=== PATIENT | female | born 1955 | race Caucasian/White ===

== ENCOUNTER 2016-10-10 01:57 | Emergency (ER) | payer OTHER ==
[2016-10-10] MEDS ORDERED: ONDANSETRON 4 MG TAB.RAPDIS PO ONE (07:56)
[2016-10-10] MEDS ORDERED: OXYCODONE-ACETAMINOPHEN 5-325 MG TABLET PO ONE (07:56)
--- NOTE | 2016-10-10 07:57 | ER Document Report ---
ED GI/ - General Chief Complaint: Back Pain Stated Complaint: RIGHT FLANK PAIN Time seen by provider: 07:05 Mode of Arrival: Ambulatory Information source: Patient Notes: 61 yo post menopausal female woke up at 2 am with bree right flank pain that radiated to the right middle to upper abdomen. Couldn't get comfortable, paced around. No fever. Did have nausea the other day. No vomiting or diarrhea. No dysuria. No abd surgery hx. TRAVEL OUTSIDE OF THE [place] IN LAST 30 DAYS: No - Related Data Allergies/Adverse Reactions: aspirin Allergy (Verified 10/10/16 02:23) levothyroxine sodium [From Synthroid] Adverse Reaction (Verified 10/10/16 02:23) Past Medical History - General Information source: Patient - Social History Smoking Status: Never Smoker Chew tobacco use (# tins/day): No Frequency of alcohol use: None Drug Abuse: None Family History: Other - Hx Heart Disease, father Endocrine Medical History: Reports: Hx Hypothyroidism Renal/ Medical History: Denies: Hx Peritoneal Dialysis Surgical Hx: Negative Review of Systems - Review of Systems Constitutional: No symptoms reported EENT: No symptoms reported Cardiovascular: No symptoms reported Respiratory: No symptoms reported Gastrointestinal: See HPI Genitourinary: No symptoms reported Female Genitourinary: No symptoms reported Musculoskeletal: See HPI Skin: No symptoms reported Hematologic/Lymphatic: No symptoms reported Neurological/Psychological: No symptoms reported Physical Exam - Vital signs Vitals: Temp Pulse Resp BP Pulse Ox 97.6 F 66 16 135/76 H 97 10/10/16 02:14 10/10/16 02:14 10/10/16 02:14 10/10/16 02:14 10/10/16 02:14 Interpretation: Normal - General General appearance: Appears well, Alert In distress: None - HEENT Head: Normocephalic, Atraumatic Eyes: Normal Pupils: PERRL Tympanic membrane: Normal Mucous membranes: Normal Pharynx: Normal Neck: Supple. No: Lymphadenopathy, Thyromegally - Respiratory Respiratory status: No respiratory distress Chest status: Nontender Breath sounds: Normal Chest palpation: Normal - Cardiovascular Rhythm: Regular Heart sounds: Normal auscultation Murmur: No - Abdominal Inspection: Normal Distension: No distension Bowel sounds: Normal Tenderness: Nontender. No: Tender Organomegaly: No organomegaly - Back Back: Normal, Nontender. No: CVA tenderness - Extremities General upper extremity: Normal inspection, Nontender, Normal color, Normal ROM , Normal temperature General lower extremity: Normal inspection, Nontender, Normal color, Normal ROM , Normal temperature, Normal weight bearing. No: Kerry's sign - Neurological Neuro grossly intact: Yes Cognition: Normal Orientation: AAOx4 Bly Coma Scale Eye Opening: Spontaneous Bly Coma Scale Verbal: Oriented Bly Coma Scale Motor: Obeys Commands Brigette Coma Scale Total: 15 Speech: Normal Motor strength normal: LUE, RUE, LLE, RLE Sensory: Normal - Psychological Associated symptoms: Normal affect, Normal mood - Skin Skin Temperature: Warm Skin Moisture: Dry Skin Color: Normal Skin irregularity: negative: Rash Course - Re-evaluation Re-evalutation: 10/10/16 09:[address] klein for the CT scan per [facility] guidelines. 10/10/16 10:30 CT shows 1 gallstone, no GB wall thickening or ductal dilitation., no hydro. no stone pain reduced with the tylenol. discussed results/plan with pt. - Vital Signs Vital signs: Temp Pulse Resp BP Pulse Ox 98.5 F 59 L 18 126/67 H 97 10/10/16 10:46 10/10/16 10:46 10/10/16 10:46 10/10/16 10:46 10/10/16 10:46 - Laboratory Result Diagrams: 10/10/16 08:10 10/10/16 08:10 Laboratory results interpreted by me: 10/10/16 10/10/16 07:35 08:10 Seg Neutrophils % 80.1 H Absolute Neutrophils 8.4 H Urine Blood SMALL H Ur Leukocyte Esterase MODERATE H Discharge - Discharge Clinical Impression: Right flank pain Cholelithiasis Qualifiers: Cholelithiasis location: gallbladder Cholecystitis presence: without cholecystitis Biliary obstruction: with biliary obstruction Qualified Code(s): K80.21 - Calculus of gallbladder without cholecystitis with obstruction Condition: Good Disposition: HOME, SELF-CARE Instructions: Gallbladder Disease ([facility]), Flank Pain ([facility]), Acetaminophen, Urinary Tract Infection ([facility]), Nitrofurantoin ([facility]) Additional Instructions: see your doctor for follow up low fat diet return to er if worse urine culture is pending see general surgeon if you develop more Right upper quadrant pain, nausea Prescriptions: Nitrofurantoin/Nitrofuran Mac [Macrobid 100 mg Capsule] 100 mg PO BID #14 capsule Forms: Return to Work Referrals: BANG GROSS MD [ACTIVE STAFF] - Follow up as needed
[2016-10-10 08:09] LABS: APPEARANCE,URINE CLEAR; BILIRUBIN,URINE NEGATIVE (NEGATIVE); GLUCOSE, URINE NEGATIVE (NEGATIVE); KETONES,URINE NEGATIVE (NEGATIVE); LEUKOCYTE ESTERASE,URINE MODERATE (NEGATIVE); NITRITE,URINE NEGATIVE (NEGATIVE); PROTEIN,URINE NEGATIVE (NEGATIVE); UROBILINOGEN,URINE NEGATIVE mg/dL (<2.0)
[2016-10-10] MEDS ORDERED: ACETAMINOPHEN 325 MG TABLET PO ONE (08:21)
[2016-10-10 08:26] LABS: ABSOLUTE BASOPHILS # (AUTO) 0.1 10^3/uL (0.0-0.2); ABSOLUTE LYMPHOCYTES (AUTO) 1.5 10^3/uL (0.5-4.7); ABSOLUTE MONOCYTES (AUTO) 0.5 10^3/uL (0.1-1.4); ABSOLUTE NEUT (AUTO) 8.4 10^3/uL (1.7-8.2); BASOPHILS % (AUTO) 0.5 % (0-2); EOSINOPHILS % (AUTO) 0.1 % (0-6); HEMATOCRIT 44.4 % (36.0-47.0); HGB HCT DIFFERENCE 0.6; LYMPHOCYTES % (AUTO) 14.5 % (13-45); MEAN CORPUSCULAR HGB CONC 33.9 g/dL (32.0-36.0); MEAN CORPUSCULAR VOLUME 86 fl (80-97); MONOCYTES % (AUTO) 4.8 % (3-13); RED BLOOD COUNT 5.19 10^6/uL (3.72-5.28); SEGMENTED NEUTROPHILS % (AUTO) 80.1 % (42-78); WHITE BLOOD COUNT 10.5 10^3/uL (4.0-10.5)
[2016-10-10 08:46] LABS: ALANINE AMINOTRANSFERASE 36 U/L (9-52); ALBUMIN 4.1 g/dL (3.5-5.0); ALKALINE PHOSPHATASE 91 U/L (38-126); ANION GAP 11 (5-19); ASPARTATE AMINO TRANSFERASE 19 U/L (14-36); BLOOD UREA NITROGEN 15 mg/dL (7-20); CALCIUM 9.8 mg/dL (8.4-10.2); CARBON DIOXIDE 24 mmol/L (22-30); CHLORIDE 107 mmol/L (98-107); CREATININE RESULT 0.92 mg/dL (0.52-1.25); GLUCOSE 105 mg/dL (75-110); LIPASE 46.3 U/L (23-300); TOTAL PROTEIN 6.5 g/dL (6.3-8.2)
[2016-10-10] MEDS ORDERED: NITROFURANTOIN MONOHYD/M-CRYST 100 MG CAPSULE PO ONE (10:23)
[2016-10-10 10:48] VITALS: BP 126/67
== END 2016-10-10 10:46 | disposition home or self-care (01) ==
LOC: ER 01:57
DX: K80.21 Calculus of gallbladder without cholecystitis with obstruction (principal); R10.9 Unspecified abdominal pain; M54.9 Dorsalgia, unspecified; R11.0 Nausea
CPT/HCPCS: 99284; 36415; 87086; 83690; 85025; 80053; 81001; 76380; J8499

== ENCOUNTER 2018-11-26 21:16 | Emergency (ER) | payer OTHER ==
[2018-11-26 22:22] LABS: APPEARANCE,URINE CLEAR; BILIRUBIN,URINE NEGATIVE (NEGATIVE); COLOR,URINE YELLOW; GLUCOSE, URINE NEGATIVE (NEGATIVE); KETONES,URINE 80 mg/dL (NEGATIVE); LEUKOCYTE ESTERASE,URINE NEGATIVE (NEGATIVE); NITRITE,URINE NEGATIVE (NEGATIVE); PROTEIN,URINE NEGATIVE (NEGATIVE); URINE SPECIFIC GRAVITY 1.012
[2018-11-26] MEDS ORDERED: ONDANSETRON HCL INJ/PF 4 MG/2 ML SDV IV ONE (22:35)
[2018-11-26] MEDS ORDERED: NORMAL SALINE 1000 ML 1,000 ML IV ONE (22:35)
--- NOTE | 2018-11-26 22:40 | ER Document Report ---
ED General - General Chief Complaint: Diarrhea Stated Complaint: DIARRHEA,COUGH Time Seen by Provider: 11/26/18 22:26 Notes: Patient is a 63-year-old female that comes to the emergency department for chief complaint of abdominal cramping and diarrhea. She states she has had diarrhea for the past 12 days. She now has a few episodes a day, only twice today, she denies blood in the stool or fevers. Before she started having diarrhea she had about 3 days of cough, congestion, fever. She had sick relatives as well. She was able to eat earlier today. She did have stool testing with her primary care provider and she did not get told of any positive results. She denies history of C. difficile. She denies recent antibiotics, recent travel, obvious raw or concerning food source. TRAVEL OUTSIDE OF THE [place] IN LAST 30 DAYS: No - Related Data Allergies/Adverse Reactions: aspirin Allergy (Verified 10/10/16 02:23) levothyroxine sodium [From Synthroid] Adverse Reaction (Verified 10/10/16 02:23) Past Medical History - General Information source: Patient, Relative - Social History Smoking Status: Never Smoker Frequency of alcohol use: None Drug Abuse: None Lives with: Family Family History: Other - Hx Heart Disease, father Endocrine Medical History: Reports: Hx Hyperthyroidism, Hx Hypothyroidism Renal/ Medical History: Denies: Hx Peritoneal Dialysis - Immunizations Hx Diphtheria, Pertussis, Tetanus Vaccination: Yes Review of Systems - Review of Systems Constitutional: See HPI EENT: See HPI Cardiovascular: No symptoms reported Respiratory: See HPI Gastrointestinal: See HPI Genitourinary: No symptoms reported Female Genitourinary: No symptoms reported Musculoskeletal: No symptoms reported Skin: No symptoms reported Hematologic/Lymphatic: No symptoms reported Neurological/Psychological: No symptoms reported Physical Exam - Vital signs Vitals: Temp Pulse Resp BP Pulse Ox 98.5 F 109 H 16 134/113 H 92 11/26/18 21:31 11/26/18 21:31 11/26/18 21:31 11/26/18 21:31 11/26/18 21:31 - Notes Notes: GENERAL: Alert, interacts well. No acute distress. HEAD: Normocephalic, atraumatic. EYES: Pupils equal, round, and reactive to light. Extraocular movements intact. ENT: Oral mucosa dry, tongue midline. Oropharynx unremarkable. Airway patent. Nares patent, no nasal septal hematoma, TM's intact. NECK: Full range of motion. Supple. Trachea midline. LUNGS: Clear to auscultation bilaterally, no wheezes, rales, or rhonchi. No respiratory distress. HEART: Borderline tachycardic, no murmur. ABDOMEN: Soft, non-tender. Non-distended. Bowel sounds present in all 4 quadrants. GENITOURINARY: Deferred EXTREMITIES: Moves all 4 extremities spontaneously. No edema, normal radial and dorsalis pedis pulses bilaterally. No cyanosis. BACK: no cervical, thoracic, lumbar midline tenderness. No saddle anesthesia, normal distal neurovascular exam. NEUROLOGICAL: Alert and oriented x3. Normal speech. [cranial nerves II through XII grossly intact]. PSYCH: Normal affect, normal mood. SKIN: Warm, dry, normal turgor. No rashes or lesions noted. Course - Re-evaluation Re-evalutation: Patient's abdomen is benign. She is alert, talkative, well-appearing. She does appear slightly dry clinically with dry mucous membranes. Borderline tachycardia. Given IV fluids. On reevaluation patient smiling, well-appearing, has no complaints. Tachycardia resolved. Leukocytosis at 16.8 noted, chemistry shows mild hypokalemia, this was discussed with patient. Urinalysis shows ketones. Patient unable to provide a stool sample. I discussed with patient. Because of leukocytosis I went and reevaluated patient's abdomen is completely nontender. Discussed the patient, x-ray unremarkable of the abdomen, further imaging deferred because of lack of any abdominal pain. Patient is tolerating p.o. without any difficulty. Diarrhea has essentially resolved today with only 2 episodes. Patient does have a cough at night that is persistent from her recent bronchitis I suspect, there is no pneumonia on x-ray however. I did discuss potentially treating patient with a prophylactic antibiotic because of the leukocytosis and cough, however because of recent diarrhea difficulties this was decided against. Instead patient will be treated symptomatically, she request something at night for cough that is stronger than Tessalon which she recently tried. She was provided with this. I discussed close follow-up and strict return precautions with patient and at bedside. They state satisfaction and agreement. - Vital Signs Vital signs: Temp Pulse Resp BP Pulse Ox 98.6 F 86 22 H 127/67 H 92 11/27/18 01:10 04/09/19 01:10 11/27/18 01:10 11/27/18 01:10 11/27/18 01:10 - Laboratory Result Diagrams: 11/26/18 23:05 11/26/18 23:05 Laboratory results interpreted by me: 11/26/18 11/26/18 11/26/18 22:00 23:05 23:05 WBC 16.8 H Seg Neutrophils % 86.5 H Lymphocytes % 9.0 L Absolute Neutrophils 14.6 H Sodium 135.9 L Potassium 3.3 L Carbon Dioxide 21 L Direct Bilirubin 0.5 H ALT 86 H Urine Ketones 80 H Urine Blood SMALL H Urine Urobilinogen 2.0 H Discharge - Discharge Clinical Impression: Cough Abdominal pain Qualifiers: Abdominal location: generalized Qualified Code(s): R10.84 - Generalized abdominal pain Diarrhea Qualifiers: Diarrhea type: unspecified type Qualified Code(s): R19.7 - Diarrhea, unspecified Condition: Stable Disposition: HOME, SELF-CARE Additional Instructions: Your workup shows dehydration, no concerning specific findings otherwise. This is most likely resolving bronchitis and gastrointestinal inflammation after a resolved virus. I recommend the Zofran and famotidine for gastrointestinal symptoms, start with bland food and slowly progress. Take the syrup provided for cough at night if needed. Avoid combining with alcohol or sedating medications, do not drive while taking. Follow-up with your primary care. Return if you worsen including fever, and return for increased abdominal pain, vomiting, vomiting blood, black stools, or any other concerning symptoms. Prescriptions: Hydrocodone Bit/Homatropine [Hycodan Syrup 5-1.5 mg/5 ml Ud Cup] 5 ml PO Q4HP PRN #120 ml PRN Reason: Famotidine [Pepcid 20 mg Tablet] 20 mg PO BID #14 tablet Ondansetron [Zofran Odt 4 mg Tablet] 1 - 2 tab PO Q4H PRN #15 tab.rapdis PRN Reason: For Nausea/Vomiting
[2018-11-26 23:24] LABS: ABSOLUTE BASOPHILS # (AUTO) 0.1 10^3/uL (0.0-0.2); ABSOLUTE LYMPHOCYTES (AUTO) 1.5 10^3/uL (0.5-4.7); ABSOLUTE MONOCYTES (AUTO) 0.7 10^3/uL (0.1-1.4); ABSOLUTE NEUT (AUTO) 14.6 10^3/uL (1.7-8.2); BASOPHILS % (AUTO) 0.4 % (0-2); EOSINOPHILS % (AUTO) 0.1 % (0-6); HEMOGLOBIN 14.6 g/dL (12.0-15.5); MEAN CORPUSCULAR HEMOGLOBIN 29.5 pg (27.0-33.4); MEAN CORPUSCULAR HGB CONC 34.8 g/dL (32.0-36.0); MEAN CORPUSCULAR VOLUME 85 fl (80-97); PLATELET COUNT 394 10^3/uL (150-450); RED BLOOD COUNT 4.95 10^6/uL (3.72-5.28); RED CELL DISTRIBUTION WIDTH 13.7 % (11.5-14.0); SEGMENTED NEUTROPHILS % (AUTO) 86.5 % (42-78); TOTAL CELLS COUNTED % (AUTO) 100 %; WHITE BLOOD COUNT 16.8 10^3/uL (4.0-10.5)
--- NOTE | 2018-11-26 23:35 | RADIOLOGY REPORT (SQ) ---
EXAM DESCRIPTION: [facility]: XR ABDOMEN SUPINE AND ERECT WITH CHEST (ABD ACUTE SERIES) Views: 4 CLINICAL HISTORY: 63 years Female, mid abd pain/swelling COMPARISON: Chest radiograph 05/11/2016 FINDINGS: AP Chest: There are slightly increased perihilar interstitial markings as well as thin bands of linear atelectasis versus scarring in the right midlung field and left lower lobe. No pneumothorax or pleural effusion. No focal consolidation. Mediastinum is within normal limits. Heart size is normal. Supine and erect AP abdomen: Bowel gas pattern is normal, with no air-fluid levels or small bowel distention. No free intraperitoneal air. No suspicious calcifications. IMPRESSION: 1. Slightly increased perihilar interstitial markings, indeterminate for mild vascular congestion versus mild interstitial pneumonitis. 2. No acute abdominal findings.
[2018-11-26 23:48] LABS: ALANINE AMINOTRANSFERASE 86 U/L (9-52); ALKALINE PHOSPHATASE 98 U/L (38-126); ANION GAP 15 (5-19); ASPARTATE AMINO TRANSFERASE 28 U/L (14-36); BILIRUBIN,DIRECT 0.5 mg/dL (0.0-0.4); BILIRUBIN,TOTAL 1.3 mg/dL (0.2-1.3); BLOOD UREA NITROGEN 8 mg/dL (7-20); CALCIUM 9.5 mg/dL (8.4-10.2); CARBON DIOXIDE 21 mmol/L (22-30); CHLORIDE 100 mmol/L (98-107); GLUCOSE 80 mg/dL (75-110); LIPASE 32.9 U/L (23-300); POTASSIUM 3.3 mmol/L (3.6-5.0); SODIUM 135.9 mmol/L (137-145); TOTAL PROTEIN 6.7 g/dL (6.3-8.2)
[2018-11-27] MEDS ORDERED: ONDANSETRON ODT 4 MG TAB (6 TAB/ER DISP) PO PRN (00:51)
[2018-11-27 01:12] VITALS: BP 127/67
== END 2018-11-27 01:15 | disposition home or self-care (01) ==
LOC: ER 21:16
DX: R19.7 Diarrhea, unspecified (principal); R05 Cough; R10.84 Generalized abdominal pain; D72.829 Elevated white blood cell count, unspecified; E87.6 Hypokalemia; R82.4 Acetonuria; Z88.6 Allergy status to analgesic agent
CPT/HCPCS: 99284; 96361; 96374; 36415; 83690; 85025; 80053; 81001; 74022; J2405; J7030